=== PATIENT | male | born 1950 | race Caucasian/White ===

== ENCOUNTER 2021-11-15 03:17 | Emergency (ER) | payer MEDICARE, OTHER ==
[~2021-11-15] VITALS: Ht 170.2 cm; Wt 86.2 kg
[2021-11-15 04:36] LABS: HEMOGLOBIN 15.1 gm/dl (14.0-17.5); RED BLOOD COUNT 4.81 M/UL (4.20-5.50); WHITE BLOOD COUNT 14.5 K/UL (4.5-11.0)
[2021-11-15 05:07] LABS: BUN/CREATININE RATIO 12 (0-10)
[2021-11-17 19:01] LABS: HEMOGLOBIN 16.2 gm/dl (14.0-17.5); RED BLOOD COUNT 5.16 M/UL (4.20-5.50); WHITE BLOOD COUNT 11.6 K/UL (4.5-11.0)
[2021-11-17 19:39] LABS: BUN/CREATININE RATIO 12 (0-10)
[2021-11-18] MEDS ORDERED: ASPIRIN 325MG325 MG PO (15:59)
[2021-11-18] MEDS ORDERED: ATORVASTATIN CA20 MG PO (15:59)
[2021-11-18] MEDS ORDERED: LISINOPRIL5 MG PO (16:37)
== END 2021-11-18 11:00 | disposition short-term general hospital (02) ==
LOC: ER1 03:17
PROVIDERS: Physician Assistant
DX: G45.9 Transient cerebral ischemic attack, unspecified (principal); F17.210 Nicotine dependence, cigarettes, uncomplicated; Z20.822 Contact with and (suspected) exposure to COVID-19
CPT/HCPCS: 70450; 70496; 70498; 70551; 71045; 80053; 80061; 80307; 81001; 82550; 82553; 83690; 83735; 83874; 83880; 84484; 85025; 87081; 87086; 87880; 93005; 99285; Q9967; U0002